=== PATIENT | male | born 1945 | race Caucasian/White ===

== ENCOUNTER 2023-03-05 09:51 | Outpatient (CLI) | payer MEDICARE, OTHER | END 2023-03-05 09:52 | disposition home or self-care (01) | LOC: RAD 09:51 | PROVIDERS: ATTEND Family Medicine | DX: M54.41 Lumbago with sciatica, right side (principal); M25.551 Pain in right hip; M47.816 Spondylosis without myelopathy or radiculopathy, lumbar region | CPT/HCPCS: 72100 ==